=== PATIENT | female | born 1960 | race Caucasian/White ===

== ENCOUNTER 2025-03-25 12:34 | Outpatient (AMB) | payer MEDICARE, MEDICAID, SELFPAY ==
[2025-03-25 13:05] VITALS: BMI 35.2
--- NOTE | 2025-03-25 13:05 | A.PHYSOV_ITS ---
Vital Signs 03/25/25 13:05 Height 5 ft Weight 180 lb BMI 35.2 Intake Visit Reasons: 4M FUV Intake Note: Patient is a 64 year old female in office for her 3 month narcotic management contract. Allergies No Known Allergies Allergy (Verified 03/25/25 13:05) HPI Comments Details: History of Present Illness The patient is a 64-year-old individual presenting with chronic lower back pain. The pain radiates to both lower extremities and has been managed with tramadol 50 mg twice daily as needed, providing a 50 to 60% reduction in symptoms. The patient reports no adverse effects from the medication and maintains regular bowel habits. The medication has significantly improved the patient's quality of life, reducing the need for hospital visits. She presents today accompanied by her Pain Description - Onset: Persistent - Quality: Radiating to lower extremities - Management: Tramadol 50 mg twice daily as needed - Relief: 50 to 60% reduction in pain Results [facility] Medical History (Updated 03/25/25 @ 13:12 by Antony Cabrales DO) Lumbar radiculitis Chronic pain syndrome Surgical History History of kidney surgery H/O tubal ligation Status post deep brain stimulator placement Social History Household Members: Spouse Alcohol intake: current Alcohol intake frequency: does not drink Patient Tobacco Use Status: Never used Tobacco Current occupational status: unemployed Review of Systems Narrative Review of Systems - Gastrointestinal: Denies changes in bowel habits, reports regular bowel movements Patient denies change in bowel bladder habits, she denies any fever or chills, denies uncontrolled depression or suicidal ideation Physical Exam Exam Exam: Physical Exam Patient appears to be in no acute distress, appropriately conversant oriented. She was able to ambulate without antalgia. She was able to get up and perform heel walk and toe walk with support for balance. Lumbar range of motion was restricted in extension side bending. Dural tension signs were negative. SI provocative maneuvers were negative. Internal rotation of both hips was painless. Neurological examination of lower extremities was nonfocal. Patient demonstrated no upper motor neuron signs. Tenderness with palpation over lower lumbar paraspinal muscles. Vital Signs: BMI result Body Mass Index 35.2 Assessment & Plan Assessment & Plan (1) Chronic pain syndrome: Code(s): G89.4 - Chronic pain syndrome Category: Medical (2) Lumbar radiculitis: Code(s): M54.16 - Radiculopathy, lumbar region Category: Medical Plan Pain Management - Affect: Improved quality of life - Analgesia: Tramadol 50 mg twice daily as needed, 50 to 60% pain reduction - Adverse Effects: Denies any side effects - Activities of Daily Living: Prevents hospital and emergency room visits Plan Patient was informed and verbally consented to the use of an ambient scribe for clinic note documentation during this visit. 1. Chronic Lower Back Pain The patient is maintained on tramadol 50 mg twice daily as needed, achieving significant pain relief and improved quality of life. The patient reports no adverse effects and regular bowel habits, suggesting good medication tolerance. Discussion Notes Continue with current medication management. I do not recommend any changes. She has been stable on her regimen. She will follow up in 4 months. All questions were answered to her satisfaction. Medication was renewed today. Her refill date is 04/14/2025 according to prescription monitoring report. Patient Instructions Medications: New tramadol Partial fill upon request 50 mg PO BID PRN 56 tabs 0RF pain 28 days G89.4 - Chronic pain syndrome, M54.16 - Radiculopathy, lumbar region Coding Level of Care Code Est Pt Level 3 (25940) Complex visit Add On G2211 Diagnoses Chronic pain syndrome G89.4 Lumbar radiculitis M54.16
--- OUTSIDE RECORDS SUMMARY | 2025-03-25 18:25 | XMS_ITS ---
Author Name [facility] Organization Unknown Care Team Organization Name Specialty Phone Email Start Date End Da te [facility] Yeni Campoverde [facility] 01/10/2023 12/23/2023 [facility] Annabella Tirado [facility] 03/13/20222023
--- OUTSIDE RECORDS SUMMARY | 2025-03-25 18:25 | XMS_ITS | Clinical Summary ---
Author Organization [facility] Address [address] [place] [address] Care Team Providers Care Community Health Agent Name Role Phone Carmela Chang MD Primary Care Provider [phone] Allergies No known active allergies Medications chlorthalidone (HYGROTON) 25 MG tablet Take 25 mg by mouth daily. 5 08/22/2018 Active citalopram (CeleXA) 20 MG tablet TAKE 1 TABLET BY MOUTH EVERY DAY 04/30/2017 Active cyclobenzaprine (FLEXERIL) 5 MG tablet TAKE 1 TABLET BY MOUTH 3 TIMES DAILY NEEDED FOR MUSCLE SPASMS. 09/16/2014 Active diltiazem (TIAZAC) 120 MG 24 hr capsule Take 120 mg by mouth. 05/03/2016 Active fenofibrate (TRIGLIDE) 160 MG tablet Take 160 mg by mouth. 08/21/2018 Active gabapentin (NEURONTIN) 100 MG capsule TAKE 1 TO 3 CAPSULES BY MOUTH AT BEDTIME 3 08/19/2018 Active lisinopril (PRINIVIL,ZeSTR IL) 2.5 MG tablet Take 5 mg by mouth. 02/21/2016 Active loratadine (CLARITIN) 10 MG tablet Take 10 mg by mouth. 08/29/2015 Active magnesium oxide 400 (241.3 Mg) MG Tab tablet TAKE 1 TABLET BY MOUTH EVERYDAY AT BEDTIME 6 10/16/2018 Active [place] 3 1000 MG Cap capsule Take 1,000 mg by mouth. 06/25/2017 Active OMEprazole (PriLOSEC) 20 MG capsule Take 20 mg by mouth. 02/17/2017 Active propranolol (INDERAL) 80 MG tablet Take 80 mg by mouth. 03/11/2018 Active traMADol (ULTRAM) 50 MG tablet Take 50 mg by mouth. 03/22/2017 Active traZODone (DESYREL) 50 MG tablet TAKE 1 TABLET BY MOUTH EVERYDAY AT BEDTIME 1 10/15/2018 Active Active Problems Problem Noted Date Diagnosed Date Status post deep brain stimulator placement 10/05 Chronic midline low back pain 10/30/2018 Essential tremor 10/30/2018 Bilateral headaches 10/30/2018 Social History Tobacco Use Types Packs/Day Years Used Date Smoking Tobacco: Never Assessed Comments Unknown Sex and Gender Information Value Date Recorded Sex Assigned at Not on file Legal Sex Female 3:22 PM EDT Gender Identity Not on file Sexual Orientation Not on file Last Filed Vital Signs Vital Sign Reading Time Taken Comments Blood Pressure 134/80 10/27/2018 3:41 PM EDT Pulse - - Temperature - - Respiratory Rate - - Oxygen Saturation - - Inhaled Oxygen Concentration - - Weight 89.8 kg (198 lb) 10/27/2018 3:41 PM EDT Height 160 cm (5' 3 ) 10/27/2018 3:41 PM EDT Body Mass Index 35.07 10/27/2018 3:41 PM EDT Plan of Treatment Health Maintenance Due Date Last Done Comments Hepatitis C Virus Screening 1960 HIV Screening 1973 DTaP/Tdap/Td Vaccines (1 - Tdap) 1979 Pap Smear (Ages 21-65) 1981 Mammogram 2000 Colonoscopy 2005 Pneumococcal Vaccines 50+ (1 of 1 - PCV) 2010 Zoster (Shingles) Vaccine (1 of 2) 2010 Influenza Vaccine 12/04/2024 04/05/2017, 02/21/2016 COVID-19 Vaccine ( - 2023-2 5 season) 2025 RSV Vaccine 50 years and older and Patients (1 - 1-dose 75+ series) 2035 Hepatitis B Vaccines Aged Out No long er eligible based on patient's age to complete this topic Insurance MEDICARE PART A & B MEDICAID [facility] [place] [address] Care Teams Community Health Agent Relationship Specialty Start Date End Date Carmela Chang MD [address] [place] [address] PCP - General 05/15/22
== END 2025-03-25 13:07 | disposition home or self-care (01) ==
LOC: HO.HPHYS 12:34
PROVIDERS: Visit Provider Physical Medicine & Rehabilitation
DX: G89.4 Chronic pain syndrome (principal); M54.16 Radiculopathy, lumbar region
CPT/HCPCS: 99213; G2211

== ENCOUNTER → 2025-03-25 12:34 | Outpatient (BNVA) | payer MEDICARE, MEDICAID, SELFPAY | PROVIDERS: Visit Provider Physical Medicine & Rehabilitation | DX: M54.16 Radiculopathy, lumbar region (principal); G89.4 Chronic pain syndrome; Z79.891 Long term (current) use of opiate analgesic | CPT/HCPCS: 99212 ==